=== PATIENT | female | born 1995 | race Caucasian/White ===

== ENCOUNTER 2017-02-17 22:26 | Outpatient (CLI) | payer MEDICAID, OTHER ==
[~2017-02-17] VITALS: Ht 152.4 cm; Wt 81.0 kg
[2017-02-17 22:34] VITALS: Ht 152.4 cm; Wt 81.0 kg
[2017-02-17] MEDS ORDERED: LACTATED RINGER'S 1,000 ML IV ONE (23:30)
[2017-02-18] MEDS ORDERED: LACTATED RINGER'S 1,000 ML IV SCH (00:30)
[2017-02-18 00:35] LABS: ADD UMIC NO; UR ASCORBIC ACID 20 mg/dL (NEGATIVE); UR BILIRUBIN (Dip) NEGATIVE (NEGATIVE); UR BLOOD (Dip) NEGATIVE (NEGATIVE); UR CLARITY CLEAR (CLEAR); UR COLOR YELLOW (YELLOW); UR GLUCOSE (Dip) NEGATIVE (NEGATIVE); UR KETONES (Dip) TRACE mg/dL (NEGATIVE); UR LEUKOCYTE ESTERASE (Dip) NEGATIVE Leu/ul (NEGATIVE); UR NITRITE (Dip) NEGATIVE (NEGATIVE); UR SPECIFIC GRAVITY (Dip) 1.017 (1.003-1.030); UR TOTAL PROTEIN (Dip) NEGATIVE (NEGATIVE); UR UROBILINOGEN (Dip) NEGATIVE (NEGATIVE)
--- NOTE | 2017-02-18 00:40 | RADRPT ---
PROCEDURE: ULTRASOUND OBSTETRICAL CLINICAL INDICATION: 22-year-old female with abdominal pain. TECHNIQUE: Multiple sonographic images of the pelvis were obtained. The images were reviewed on a PACS workstation. COMPARISON: No prior studies are available for comparison. FINDINGS: The cervix is not well visualized. There is a single viable intrauterine gestation. Cardiac activit y is present with 168 beats per minute. There is a vertex presentation. Measurements were made in or karlos to determine age. The results are as follows: BPD = 9.29 cm, HC = 33.12 cm, AC = 32.29 cm, FL = 6.85 cm. This yields and estimated gestational ag e of approximately 36 weeks 5 days. The estimated date of delivery is March 12, 2017. The EFW = 2897 +/- 435 g (6 lb 6 oz). The GP is 63%. The placenta is anterior. There is no evidence for an abruption or placenta previa. IMPRESSION: 1. Single viable intrauterine gestation of approximately 36 weeks 5 days with vertex presentation. 2. The estimated weight is 2897 +/- 435 g (6 lb 6 oz). The GP is 63%. .Nadeem Mahmood MD, Date Time Electronically viewed and signed by .Nadeem Mahmood MD, MD on 02/18/2017 00:40 .M/
--- NOTE | 2017-02-18 00:41 | RADRPT ---
PROCEDURE: ULTRASOUND BIOPHYSICAL PROFILE CLINICAL INDICATION: 22-year-old female for viability. TECHNIQUE: Multiple sonographic images were obtained in order to perform a biophysical profile The images were reviewed on a PACS workstation. COMPARISON: Ultrasound OB obtained concurrently. FINDINGS: There is a single viable intrauterine gestation. There is a vertex presentation. Cardiac activity i s present at 166 beats per minute. The placenta is anterior. The results of the biophysical profile are as follows: breathing movement = 2/2 Gross body movement = 2/2 tone = 2/2 Qualitative amniotic fluid volume = 2/2 Amniotic fluid index equals 11.6 cm. This yields a biophysical profile score of 8/8. IMPRESSION: Biophysical profile score is 8/8. .Nadeem Mahmood MD, Date Time Electronically viewed and signed by .Nadeem Mahmood MD, on 02/18/2017 00:41 .M/
--- NOTE | 2017-02-18 01:48 | PN ---
Triage Information Date/Time Reason for visit: Abd/pelvic pain Weeks of Gestation 36 weeks /Para Diabetes: none Hypertention: none Objective Intake and Output 02/17/17 02/17/17 02/18/17 15:00 23:00 07:00 Intake Total 1000 ml Balance 1000 ml Heart Rate: 150's Heart Rate Comments Category I Contractions: 6-10 Minutes Apart Exam Cervix closed Results/Medications Results 24 hrs Laboratory Tests Test 02/17/17 22:32 Urine Color YELLOW Urine Clarity CLEAR Urine pH 6.0 Urine Specific [place] 1.017 Urine Ketones TRACE A Urine Nitrite NEGATIVE Urine Bilirubin NEGATIVE Urine Urobilinogen NEGATIVE Urine Leukocyte Esterase NEGATIVE Urine Hemoglobin NEGATIVE Urine Glucose NEGATIVE Urine Total Protein NEGATIVE Medications Current Medications Lactated Ringer's (Lr) 1,000 ml @ 125 mls/hr Q8H IV ; Start 02/18/17 at 00:30 Imaging Results [facility] 12/02 Disposition: Discharge Assessment/Plan Not in labor D/C home. KALIE WALKER MD Feb 18, 2017 01:48
[2017-02-19] MEDS ORDERED: MUPI22OI2 TOP (10:35)
[2017-02-19] MEDS ORDERED: CEPH-443 PO (10:35)
== END 2017-02-18 01:51 | disposition home or self-care (01) ==
LOC: OBT 22:26 → L-D 22:27 → OBT 02-18 01:51
PROVIDERS: ATTEND Obstetrics & Gynecology
DX: O26.893 Other specified pregnancy related conditions, third trimester (principal); Z3A.36 36 weeks gestation of pregnancy; R10.9 Unspecified abdominal pain
CPT/HCPCS: 36415; 76815; 76818; 81003; 96360; 96361; J7120; Z7500; G0463

== ENCOUNTER 2017-02-19 08:35 | Emergency (ER) | payer OTHER ==
[~2017-02-19] VITALS: Ht 154.9 cm; Wt 81.0 kg
[2017-02-19 08:39] VITALS: Ht 154.9 cm; Wt 81.0 kg
--- NOTE | 2017-02-19 10:32 | ERD ---
ER Documentation Chief Complaint Chief Complaint right 4th digit swelling sent by pmd HPI 22-year-old female at 36 weeks , presents to the emergency department complaining of 2 days with progressive pain, edema, erythema of the right fourth digit. The pain is throbbing, 5/10. Risk factors: Nail biting. Denies fevers, chills. In regards to her , no complaints at this time, denies abdominal pain, no vaginal bleeding, refers adequate movements. ROS SYSTEMIC symptoms: No fever, no chills, no night sweats EYE symptoms: No eyesight problems. OTOLARYNGEAL symptoms: No hearing loss. CARDIOVASCULAR symptoms: No chest pain or discomfort, no palpitations. PULMONARY symptoms: No dyspnea, no cough, no wheezing. GASTROINTESTINAL symptoms: No abdominal pain, no nausea, no vomiting SKIN no rashes MUSCULOSKELETAL symptoms: No arthralgias, no muscle aches. NEUROLOGY symptoms: No headache, no confusion, no syncope, no numbness or tingling. All systems reviewed and are negative except as per history of present illness. Medications Home Meds Active Scripts Mupirocin* (Bactroban*) 2% -22 Gram Oint...g., 1 APPLIC TOP BID for 7 Days, EA Prov:LANI SONG MD 02/19/17 Cephalexin* (Keflex*) 500 Mg Capsule, 500 MG PO BID for 5 Days, CAP Prov:LANI SONG MD 02/19/17 Allergies Allergies: Coded Allergies: No Known Allergy (Unverified , 02/17/17) PMhx/Soc Medical and Surgical Hx: pt denies Medical Hx, pt denies Surgical Hx Hx Alcohol Use: No Hx Substance Use: No Hx Tobacco Use: No Physical Exam Vitals Vital Signs Date Time Temp Pulse Resp B/P Pulse Ox O2 Delivery O2 Flow Rate FiO2 02/19/17 08:39 98.8 92 18 131/75 98 Physical Exam Patient is in no acute distress, vital signs stable. Alert and fully oriented. EYES: PERRLA, EOMI, Sclera and conjunctiva appear normal. THROAT: Normal oropharynx. NECK: Supple, No lymphadenopathy. Full ROM without pain or tenderness. HEART: RRR, no rubs, murmurs, clicks or gallops. LUNGS: Clear to auscultation. ABDOMEN: Soft, uterus gravid, non-tender without masses or hepatosplenomegaly. SKIN: Rt 4th digit: periungual edema, erythema and tenderness. Cap refill <2sec Procedures/MDM Paronychia I&D: The procedure was explained and consent obtained. The area was cleaned with iodine. A sterile drape and prep were done. The fluctuant area around the nail , was excised with an 18-gauge needle obtaining moderate amount of pus, the area was expressed and irrigated with normal saline. Antibiotic ointment was applied. The patient tolerated the procedure well. MDM: 22-year-old female, at 36 weeks, presents with pain, erythema, and edema of the right fourth finger. Differential diagnosis includes abscess, cellulitis, herpetic winifred, eczema, hematoma. Physical examination and clinical finding consistent with paronychia, incision and drainage was done without complications. The patient will be discharged home with a prescription for cephalexin p.o. for 5 days and mupirocin topical for 5 days. Follow-up in 2 -4 days with her primary doctor, the patient was instructed to return to the emergency department for worsening of symptoms. Departure Diagnosis: Primary Impression: Paronychia of finger of right hand Additional Impression: Condition: Stable Patient Instructions: Paronychia Additional Instructions: Muchas karla por [facility] para khalil servicio. Esperamos que en khalil visita a la gama de emergencia khalil problema medico haya sido solucionado y que se sienta mucho mejor. Para estar seguros que khalil mejoria sigue en proceso, le pedimos el favor de hacer denia shaquille de seguimiento medico con khalil doctor primario en los proximos 2-4 house. Lleve con usted estos documentos y las medicinas recetadas. Si yosi sintomas empeoran y no puede jim a khalil doctor, por favor regrese a gama de emergencia. LANI SONG MD Feb 19, 2017 10:30
[2017-02-19] MEDS ORDERED: MUPI22OI2 TOP (10:35)
[2017-02-19] MEDS ORDERED: CEPH-443 PO (10:35)
== END 2017-02-19 10:40 | disposition home or self-care (01) ==
LOC: FTE 08:35
DX: L03.011 Cellulitis of right finger (principal)
CPT/HCPCS: 10060; Z7502

== ENCOUNTER 2017-02-28 21:10 | Outpatient (CLI) | payer OTHER ==
[~2017-02-28] VITALS: Ht 152.4 cm; Wt 83.0 kg
[~2017-02-28 21:10] MED LIST: CEPH-443 PO; MUPI22OI2 TOP
[2017-02-28 21:33] VITALS: BP 121/71; PULSE 116; RESP 18
[2017-02-28] MEDS ORDERED: PREN1COM15 PO (21:37)
[2017-02-28] MEDS ORDERED: CALC667C PO (21:38)
[2017-02-28] MEDS ORDERED: ACETAMINOPHEN 500 MG TAB PO ONE (21:57)
--- NOTE | 2017-02-28 22:26 | RADRPT ---
PROCEDURE: Obstetrical ultrasound for biophysical profile CLINICAL INDICATION: Biophysical profile. . TECHNIQUE: Obstetrical ultrasound of the uterus for biophysical profile. Transabdominal views are obtained. COMPARISON: 02/17/2017 FINDINGS: Single intrauterine gestation. Presentation: Cephalic. Placenta: Anterior. No evidence of placental abruption. No evidence of placenta previa. breathing movement = 2/2 tone = 2/2 motion = 2/2 TISHA = 2/2 TISHA = 18.1 cm heart rate: 150 beats per minute IMPRESSION: Single intrauterine gestation. Biophysical profile 12/02 RPTAT: AADD .Nikko Cook MD, MD Date Time Electronically viewed and signed by .Nikko Cook MD, on 02/28/2017 22:26 .B/
--- NOTE | 2017-03-01 00:15 | PN ---
Triage Information Date/Time Mar 01, 2017 Reason for visit: Abd/pelvic pain Weeks of Gestation 37w 4d /Para 1/0 Diabetes: none Hypertention: none Additional information C/O back pain, mild that radiates to the right side. No dysuria or frequency. PMHx: none. PSHx: Breast augmentation. NKDA. Objective Vital Signs Date Time Temp Pulse Resp B/P Pulse Ox O2 Delivery O2 Flow Rate FiO2 02/28/17 21:33 98.7 116 18 121/71 Room Air Heart Rate: 150's Heart Rate Comments Accels to 180 bpm. No decels. Contractions: 6-10 Minutes Apart Exam cl/th/high Results/Medications Results 24 hrs Laboratory Tests Test 02/28/17 23:00 Urine Color STRAW Urine Clarity CLEAR Urine pH 7.0 Urine Specific [place] 1.004 Urine Ketones NEGATIVE Urine Nitrite NEGATIVE Urine Bilirubin NEGATIVE Urine Urobilinogen NEGATIVE Urine Leukocyte Esterase NEGATIVE Urine Hemoglobin NEGATIVE Urine Glucose NEGATIVE Urine Total Protein NEGATIVE Imaging Results BPP 8/8. TISHA 18.1 cm. VTX. Disposition: Discharge Assessment/Plan A: IUP at 37w 4d. Back pain. False labor. P: Pain resolved with p.o. hydration and one dose of Tylenol. Pt ready for d/c home. Labor precautions and kick counts reviewed. KARLA MOSQUEDA MD Mar 01, 2017 00:15
== END 2017-03-01 00:30 | disposition home or self-care (01) ==
LOC: OBT 21:10 → L-D 21:11 → OBT 03-01 00:30
PROVIDERS: ATTEND Obstetrics & Gynecology
DX: O26.893 Other specified pregnancy related conditions, third trimester (principal); Z3A.37 37 weeks gestation of pregnancy; R10.2 Pelvic and perineal pain; O47.9 False labor, unspecified
CPT/HCPCS: 76818; 81003; 87086; Z7500; Z7610; G0463

== ENCOUNTER 2017-03-07 11:53 | Outpatient (CLI) | payer OTHER ==
[~2017-03-07] VITALS: Ht 152.4 cm; Wt 81.6 kg
[~2017-03-07 11:53] MED LIST changes: +CALC667C PO; +PREN1COM15 PO
[2017-03-07 12:18] VITALS: Ht 152.4 cm; Wt 81.6 kg
[2017-03-07 12:19] VITALS: BP 113/74; PULSE 113; RESP 18
--- NOTE | 2017-03-07 13:32 | RADRPT ---
PROCEDURE: Obstetrical ultrasound for biophysical profile CLINICAL INDICATION: Biophysical profile. . TECHNIQUE: Obstetrical ultrasound of the uterus for biophysical profile. Transabdominal views are obtained. COMPARISON: 02/28/2017 FINDINGS: Single intrauterine gestation. Presentation: Cephalic. Placenta: Anterior. No evidence of placental abruption. No evidence of placenta previa. breathing movement = 2/2 tone = 2/2 motion = 2/2 TISHA = 2/2 TISHA = 14.9 cm heart rate: 176 beats per minute IMPRESSION: Single intrauterine gestation. Biophysical profile 12/02 RPTAT: AADD .Nikko Cook MD, MD Date Time Electronically viewed and signed by .Nikko Cook MD, on 03/07/2017 13:32 .B/
--- NOTE | 2017-03-07 13:34 | RADRPT ---
PROCEDURE: Obstetrical ultrasound. CLINICAL INDICATION: , evaluation. Pelvic pain. TECHNIQUE: Transabdominal sonographic images of the uterus obtained after first trimester , greater than 14 weeks gestation. Single intrauterine gestation present. COMPARISON: 02/28/2017, 02/17/2017 FINDINGS: Single intrauterine gestation. There is a cephalic presentation. Measurements were made in order to determine age. The results are as follows: BPD = 38 weeks 6 day(s) HC = 39 weeks 0 day(s) AC = 40 weeks 6 day(s) FL = 36 weeks 3 day(s) TISHA = not measured Heart rate = 146 beats per minute The placenta is anterior. There is no evidence for an abruption or placenta previa. Ovaries are not visualized. IMPRESSION: Single intrauterine gestation of approximately 38 weeks 6 days by ultrasound criteria. [place] estimated weight = 3813 g; 87 percentile for gestational age of 38 weeks 3 days. RPTAT: AADD .Nikko Cook MD, MD Date Time Electronically viewed and signed by .Nikko Cook MD, on 03/07/2017 13:34 .B/
--- NOTE | 2017-03-07 14:24 | PN ---
Triage Information Date/Time 03/07/2017 Reason for visit: Uterine contractions Weeks of Gestation 38+ /Para ge=ravida 3 P 0 Diabetes: none Hypertention: none Objective Vital Signs Date Time Temp Pulse Resp B/P Pulse Ox O2 Delivery O2 Flow Rate FiO2 03/07/17 12:19 97.9 113 18 113/74 98 Room Air Heart Rate: 140's Heart Rate Comments reactive Contractions: None Results/Medications Results 24 hrs Laboratory Tests Test 03/07/17 12:13 Urine Color YELLOW Urine Clarity CLOUDY A Urine pH 7.0 Urine Specific [place] 1.011 Urine Ketones NEGATIVE Urine Nitrite NEGATIVE Urine Bilirubin NEGATIVE Urine Urobilinogen NEGATIVE Urine Leukocyte Esterase 3+ H Urine Microscopic RBC 3 Urine Microscopic WBC 14 H Urine Squamous Epithelial Cells FEW Urine Amorphous Crystals FEW A Urine Bacteria MANY A Urine Hemoglobin NEGATIVE Urine Glucose NEGATIVE Urine Total Protein NEGATIVE Urine Opiates Screen Negative Urine Barbiturates Negative Urine Amphetamines Screen Negative Urine Benzodiazepines Screen Negative Urine Cocaine Screen Negative Urine Cannabinoids Negative Medications none Imaging Results [facility] 12/02 Disposition: Discharge Assessment/Plan home with labor precautions SHAYNE CERVANTES MD Mar 07, 2017 14:24
--- NOTE | 2017-03-07 14:24 | PN ---
Triage Information Date/Time 03/07/2017 Reason for visit: Uterine contractions Weeks of Gestation 38+ /Para ge=ravida 3 P 0 Diabetes: none Hypertention: none Objective Vital Signs Date Time Temp Pulse Resp B/P Pulse Ox O2 Delivery O2 Flow Rate FiO2 03/07/17 12:19 97.9 113 18 113/74 98 Room Air Heart Rate: 140's Heart Rate Comments reactive Contractions: None Results/Medications Results 24 hrs Laboratory Tests Test 03/07/17 12:13 Urine Color YELLOW Urine Clarity CLOUDY A Urine pH 7.0 Urine Specific [place] 1.011 Urine Ketones NEGATIVE Urine Nitrite NEGATIVE Urine Bilirubin NEGATIVE Urine Urobilinogen NEGATIVE Urine Leukocyte Esterase 3+ H Urine Microscopic RBC 3 Urine Microscopic WBC 14 H Urine Squamous Epithelial Cells FEW Urine Amorphous Crystals FEW A Urine Bacteria MANY A Urine Hemoglobin NEGATIVE Urine Glucose NEGATIVE Urine Total Protein NEGATIVE Urine Opiates Screen Negative Urine Barbiturates Negative Urine Amphetamines Screen Negative Urine Benzodiazepines Screen Negative Urine Cocaine Screen Negative Urine Cannabinoids Negative Medications none Imaging Results [facility] [place] 12/02 Disposition: Discharge Assessment/Plan home with labor precautions SHAYNE CERVANTES MD Mar 07, 2017 14:24
--- NOTE | 2017-03-07 14:24 | PN ---
Triage Information Date/Time 03/07/2017 Reason for visit: Uterine contractions Weeks of Gestation 38+ /Para ge=ravida 3 P 0 Diabetes: none Hypertention: none Objective Vital Signs Date Time Temp Pulse Resp B/P Pulse Ox O2 Delivery O2 Flow Rate FiO2 03/07/17 12:19 97.9 113 18 113/74 98 Room Air Heart Rate: 140's Heart Rate Comments reactive Contractions: None Results/Medications Results 24 hrs Laboratory Tests Test 03/07/17 12:13 Urine Color YELLOW Urine Clarity CLOUDY A Urine pH 7.0 Urine Specific [place] 1.011 Urine Ketones NEGATIVE Urine Nitrite NEGATIVE Urine Bilirubin NEGATIVE Urine Urobilinogen NEGATIVE Urine Leukocyte Esterase 3+ H Urine Microscopic RBC 3 Urine Microscopic WBC 14 H Urine Squamous Epithelial Cells FEW Urine Amorphous Crystals FEW A Urine Bacteria MANY A Urine Hemoglobin NEGATIVE Urine Glucose NEGATIVE Urine Total Protein NEGATIVE Urine Opiates Screen Negative Urine Barbiturates Negative Urine Amphetamines Screen Negative Urine Benzodiazepines Screen Negative Urine Cocaine Screen Negative Urine Cannabinoids Negative Medications none Imaging Results [facility] 12/02 Disposition: Discharge Assessment/Plan home with labor precautions SHAYNE CERVANTES MD Mar 07, 2017 14:24
== END 2017-03-07 14:42 | disposition home or self-care (01) ==
LOC: OBT 11:53 → L-D 11:54 → OBT 14:42
PROVIDERS: ATTEND Obstetrics & Gynecology
DX: O62.9 Abnormality of forces of labor, unspecified (principal); Z3A.38 38 weeks gestation of pregnancy
CPT/HCPCS: 76815; 76818; 80307; 81001; Z7500; G0463

== ENCOUNTER 2017-03-12 08:47 | Inpatient (IN) | payer OTHER ==
[~2017-03-12] VITALS: Ht 152.4 cm; Wt 82.7 kg
[~2017-03-12 08:47] MED LIST changes: -CEPH-443 PO; -MUPI22OI2 TOP
[2017-03-12 09:24] VITALS: BP 124/71; PULSE 90; RESP 18; Ht 152.4 cm; Wt 82.7 kg
[2017-03-12] MEDS ORDERED: LIDOCAINE 1% (MPF) 30 ML INJ INJ PRN (09:30)
[2017-03-12] MEDS ORDERED: METHYLERGONOVINE 0.2 MG INJ IM PRN (09:30)
[2017-03-12] MEDS ORDERED: MISOPROSTOL 200 MCG TAB PR PRN (09:30)
[2017-03-12] MEDS ORDERED: OXYTOCIN 30 UNITS/LR 500 ML IV PRN (09:30)
[2017-03-12] MEDS ORDERED: CARBOPROST 250 MCG INJ IM PRN (09:30)
[2017-03-12] MEDS ORDERED: IBUPROFEN 600 MG TAB PO PRN (09:30)
[2017-03-12] MEDS: LACTATED RINGER'S 1,000 ML IV SCH ×2 (09:51→17:04)
[2017-03-12 10:35] LABS: BASOPHILS % 0.1 % (0.0-2.0); EOSINOPHILS % 0.4 % (0.0-7.0); HEMATOCRIT 40.4 % (37.0-47.0); HEMOGLOBIN 13.5 g/dl (12.0-16.0); LYMPHOCYTES # 1.3 10^3/ul (0.8-2.9); LYMPHOCYTES % 15.6 % (15.0-51.0); MEAN CORPUSCULAR HEMOGLOBIN 30.6 pg (29.0-33.0); MEAN CORPUSCULAR HGB CONC 33.4 g/dl (32.0-37.0); MEAN CORPUSCULAR VOLUME 91.6 fl (82.0-101.0); MEAN PLATELET VOLUME 10.6 fl (7.4-10.4); MONOCYTE # 0.4 10^3/ul (0.3-0.9); MONOCYTES % 4.7 % (0.0-11.0); NEUTROPHIL # 6.7 10^3/ul (1.6-7.5); NEUTROPHILS % 78.5 % (39.0-77.0); PLATELET COUNT 175 10^3/UL (140-415); RED BLOOD COUNT 4.41 10^6/ul (4.20-5.40); RED CELL DISTRIBUTION WIDTH 13.3 % (11.5-14.5); WHITE BLOOD COUNT 8.5 10^3/ul (4.8-10.8)
[2017-03-12] MEDS: MISOPROSTOL 25 MCG CAPSULE PO PRN ×4 (10:40→22:39)
[2017-03-12 10:51] LABS: INR 0.92; PARTIAL THROMBOPLASTIN TIME 27.2 Sec (25.0-35.0); PROTIME 12.4 Sec (12.2-14.2)
--- NOTE | 2017-03-12 17:46 | HP ---
Date/Time of Note Date/Time of Note DATE: 03/12/17 TIME: 17:43 OB - History Hx of Present Free Text/Dictation Admitted for induction of labor at term Last Menstrual Period: Jun 11, 2017 Estimated Due Date: Mar 18, 2017 : 1 Para: 0 Care: Good Care Ultrasounds: Normal mid trimester US Obstetrical Complications: None Medical Complications: None Past Family/Social History * Past Medical, Surgical, Family and Obstetric Histories reviewed from chart. Blood Type: O+ Rubella: immune RPR/VDRL: Negative GBS Status: Negative HBsAG: Negative OB Admission Exam Vital Signs Vital Signs Vital Signs Date Time Temp Pulse Resp B/P Pulse Ox O2 Delivery O2 Flow Rate FiO2 03/12/17 09:24 98.8 90 18 124/71 Room Air Physical Exam HEENT: WNL Heart: Rhythm Normal Lungs: Clear, Equal Abdomen: WNL Extremities: Normal Reflexes: Normal Cervical Dilatation: None Effacement: 0% Station: -3 Membranes: Intact Heart Rate: 140's Accelerations: Accelerations Present Decelerations: No Decelerations Varibility: Marked Contractions on Admission: None Last 72 hours Lab Results CBC & BMP 03/12/17 09:35 OB Assessment/Plan Reason for admission: induction of labor Other Assessment: Term gestation Desires elective induction Other plan: Induction of labor Via Cytotec SHAYNE CERVANTES MD Mar 12, 2017 17:46
[2017-03-13] MEDS: LACTATED RINGER'S 1,000 ML IV SCH ×3 (00:05→15:59)
[2017-03-13] MEDS: BUTORPHANOL 2 MG INJ IV PRN (04:27)
[2017-03-13] MEDS: MISOPROSTOL 25 MCG CAPSULE PO PRN ×2 (12:48→17:11)
[2017-03-13] MEDS ORDERED: DINOPROSTONE 10 MG VAG SUPP VAG ONE (21:00)
[2017-03-14] MEDS: LACTATED RINGER'S 1,000 ML IV SCH ×5 (00:04→21:15)
[2017-03-14] MEDS: BUTORPHANOL 2 MG INJ IV PRN (02:35)
[2017-03-14] MEDS ORDERED: FENTAnyl 2MCG/ML-ROPIV 0.2% 100 ML ONE (07:40)
[2017-03-14] MEDS ORDERED: NALOXONE (0.4 MG/ML) INJ IV PRN (08:00)
[2017-03-14] MEDS: FENTAnyl 2MCG/ML-ROPIV 0.2% 100 ML BAG EPI SCH ×2 (14:48→20:20)
--- NOTE | 2017-03-14 16:39 | PN ---
Date/Time of Note Date/Time of Note late entry DATE: 03/13/17 TIME: 16:11 OB Subjective Subjective Subjective No major complaint of uterine contractions OB Objective Objective Objective Vital signs stable General physical exam is unchanged Cervix is long and 1 cm OB Assessment/Plan Reason for admission: induction of labor Other Assessment: Term gestation Other plan: Cervidil was placed SHAYNE CERVANTES MD Mar 14, 2017 16:21
--- NOTE | 2017-03-14 16:46 | PN ---
Date/Time of Note Date/Time of Note DATE: 03/14/17 TIME: 16:45 OB Subjective Subjective Subjective NO C.O labor pains has epidural OB Objective Objective Objective vss P/E unchanged FHTsd reactive OB Assessment/Plan Reason for admission: induction of labor Other Assessment: term gestation Other plan: Start Pitocin SHAYNE CERVANTES MD Mar 14, 2017 16:46
[2017-03-14] MEDS ORDERED: OXYTOCIN 30 UNITS/LR 500 ML IV SCH ×2 (17:00→18:00)
[2017-03-14] MEDS ORDERED: OXYTOCIN 30 UNITS/LR 500 ML IVPB ONE (18:00)
[2017-03-15] MEDS ORDERED: AMPICILLIN 2 GM/NS (PMX) 100 ML ONE (00:17)
[2017-03-15] MEDS ORDERED: AMPICILLIN 2 GM/NS (PMX) 100 ML IV ONE (00:30)
[2017-03-15] MEDS ORDERED: ACETAMINOPHEN 325 MG TAB PO ONE (00:30)
[2017-03-15] MEDS: FENTAnyl 2MCG/ML-ROPIV 0.2% 100 ML BAG EPI SCH (01:16)
[2017-03-15] MEDS ORDERED: CEFAZOLIN 2 GM/50 ML (PMX) 50 ML IVPB ONE (02:46)
[2017-03-15] MEDS ORDERED: CITRIC ACID/SODIUM CITRATE 15 ML CUP ONE (02:56)
[2017-03-15] MEDS ORDERED: ONDANSETRON 4 MG INJ ONE ×2 (02:56→03:57)
[2017-03-15] MEDS ORDERED: FAMOTIDINE 20 MG INJ ONE (02:56)
[2017-03-15] MEDS ORDERED: METOCLOPRAMIDE 10 MG INJ ONE (02:57)
[2017-03-15] MEDS ORDERED: METHYLERGONOVINE 0.2 MG INJ IM PRN ×2 (03:00→05:00)
[2017-03-15] MEDS ORDERED: MISOPROSTOL 200 MCG TAB PR PRN ×2 (03:00→05:00)
[2017-03-15] MEDS ORDERED: CARBOPROST 250 MCG INJ IM PRN ×2 (03:00→05:00)
[2017-03-15] MEDS ORDERED: FAMOTIDINE 20 MG INJ IV ONE (03:00)
[2017-03-15] MEDS ORDERED: CITRIC ACID/SODIUM CITRATE 15 ML CUP PO ONE (03:00)
[2017-03-15] MEDS ORDERED: METOCLOPRAMIDE 10 MG INJ IV ONE (03:00)
[2017-03-15] MEDS ORDERED: OXYTOCIN 30 UNITS/LR 500 ML IV PRN ×2 (03:00→05:00)
[2017-03-15] MEDS ORDERED: CEFAZOLIN 2 GM/50 ML (PMX) 50 ML IV SCH (03:00)
[2017-03-15] MEDS ORDERED: FENTAnyl 50 MCG/ML VIAL ONE (03:15)
[2017-03-15] MEDS ORDERED: morphine SULFATE/PF (10 MG/10 ML) INJ ONE (03:15)
[2017-03-15] MEDS ORDERED: PHENYLephrine (100 MCG/ML) 5ML SYG ONE ×3 (03:36→04:33)
[2017-03-15] MEDS ORDERED: MIDAZOLAM 1 MG/ML 2 ML INJ ONE (04:01)
[2017-03-15] MEDS ORDERED: OXYTOCIN 30 UNITS/LR 500 ML IV ONE (04:16)
[2017-03-15] MEDS ORDERED: AMPICILLIN 1 GM/NS (PMX) 50 ML IV SCH (04:30)
--- NOTE | 2017-03-15 04:47 | QN ---
Documentation Comment Laborist Examined pt and she was 6 cm however the head was high and with contractions it did not come down much. The pt asked for a as her labor was so protracted and she was in a lot of pain despite additional dosing of her epidural by the anesthesiologist. Risks and benefits were reviewed with the pt and the consent was signed. KARLA MOSQUEDA MD Mar 15, 2017 04:47
[2017-03-15] MEDS ORDERED: LANOLIN 7 GM TUBE TOP PRN (05:00)
[2017-03-15] MEDS ORDERED: OXYCODONE/ACETAMINOPHEN (5/325) TAB PO PRN ×2 (05:00)
--- NOTE | 2017-03-15 05:07 | OPR ---
Operative Report Planned Procedure Procedure date Mar 15, 2017 Procedure(s) Primary . Performed by see signature line Business Line Controller Dr Myers Anesthesiologist: BIRGIT GUTIERREZ MD Pre-procedure diagnosis Failure to progress. Anesthesia Type: spinal Post-Procedure Post-procedure diagnosis Failure to progress, macrosomia. Findings Viable baby boy weighing 3985 grams, or 8# 13 oz, 20.5" long, and with Apgars of 8/9. Estimated Blood Loss: 400 - 500 mls Specimen(s) none Grafts/Implant(s) none Complication(s) none Pt Condition post procedure: stable Disposition: PACU Procedure Description Pt was brought to the OR and her epidural was pulled and a spinal was placed. She was then prepped and draped in the usual sterile fashion. A knife was used to incise the skin down to the level of the fascia. Scissors were then used to extend the fascial incision bilaterally. The superior edge of the fascia was grasped and the rectus muscles were from the fascia using blunt dissection and bovie cautery. This was repeated at the lower edge of the incision as well. The rectus muscles were at midline and the peritoneum was bluntly entered using the surgeon's fingers. The incision was stretched open using the surgeon's hands. A bladder blade and Zuñiga retractor were placed. A knife was used to incise the lower uterine segment and the uterus was entered using a Bianca clamp. The incision was then stretched open using the surgeon's hands. The head was elevated and with gentle fundal pressure the baby was easily delivered as the head was not well engaged. 30 seconds was allowed to pass and then the cord was doubly clamped and cut and the baby was brought to the warmer and the NICU respiratory team was in attendance. The placenta was manually extracted, the uterus was externalized and wrapped in a moist lap and a dry lap was used to clean the inside of the uterus. The uterus remained boggy after initiation of pitocin so a dose of methergine was given. The incision was closed in 2 layers with #1 chromic suture with excellent hemostasis. The pelvis was irrigated and the uterus was replaced back into the abdomen. The incision was examined again and noted to be dry. The peritoneum was closed with 2-0 chromic and the rectus muscles were brought back together at midline using 2 interrupted figure of 8 sutures. The underbelly of the fascia was noted to be dry and the fascia was closed using 0 Vicryl from each lateral edge to midline with overlap at the midline. The incision was then irrigated well and the subcutaneous layer was closed using 0 plain suture and the skin was closed using 3-0 Monocryl in a subcuticular stitch. Steristrips with Mastosol were placed. A pressure dressing was applied overall. The pt tolerated the procedure well and was brought to the recovery room in excellent condition. KARLA MOSQUEDA MD Mar 15, 2017 05:07
[2017-03-15] MEDS ORDERED: HYDROmorphONE 0.5 MG/0.5 ML SYG IV PRN ×2 (05:30)
[2017-03-15] MEDS ORDERED: FENTAnyl 50 MCG/ML VIAL IV PRN (05:30)
[2017-03-15] MEDS ORDERED: ZOLPIDEM 5 MG TAB PO PRN (05:30)
[2017-03-15] MEDS ORDERED: KETOROLAC 30 MG INJ IV PRN (05:30)
[2017-03-15] MEDS ORDERED: DIPHENHYDRAMINE 50 MG INJ IV PRN ×2 (05:30)
[2017-03-15] MEDS ORDERED: NALOXONE (0.4 MG/ML) INJ IV PRN (05:30)
[2017-03-15] MEDS ORDERED: ONDANSETRON 4 MG INJ IV PRN ×2 (05:30)
[2017-03-15] MEDS ORDERED: PROCHLORPERAZINE 10 MG INJ IV PRN (05:30)
[2017-03-15] MEDS ORDERED: HYDROmorphONE (0.2 MG/ML) 10ML SYG IV PRN (05:30)
[2017-03-15] MEDS ORDERED: MEPERIDINE 25 MG INJ IV PRN (05:30)
[2017-03-15] MEDS ORDERED: OXYTOCIN 30 UNITS/LR 500 ML IV SCH (07:30)
[2017-03-15] MEDS: LACTATED RINGER'S 1,000 ML IV SCH ×3 (07:47→22:20)
[2017-03-15 08:05] VITALS: BP 122/64; PULSE 106; RESP 20
[2017-03-15 08:35] VITALS: BP 125/64; PULSE 108; RESP 20
[2017-03-15 11:55] VITALS: BP 115/58; PULSE 109; RESP 16
[2017-03-15 15:48] VITALS: BP 117/83; PULSE 115; RESP 18
[2017-03-15] MEDS: CEFAZOLIN 2 GM/50 ML (PMX) 50 ML IVPB SCH (16:58)
[2017-03-15] MEDS: CLINDAMYCIN 300 MG CAP PO SCH (18:36)
[2017-03-15] MEDS: KETOROLAC 30 MG INJ IV PRN (18:39)
[2017-03-15 20:00] VITALS: BP 92/51; PULSE 93; RESP 18
[2017-03-16 00:15] VITALS: BP 109/58; PULSE 83; RESP 18
[2017-03-16] MEDS: CLINDAMYCIN 300 MG CAP PO SCH ×4 (01:09→17:43)
[2017-03-16] MEDS: CEFAZOLIN 2 GM/50 ML (PMX) 50 ML IVPB SCH (02:39)
[2017-03-16] MEDS: KETOROLAC 30 MG INJ IV PRN (02:39)
[2017-03-16 03:58] VITALS: BP 113/65; PULSE 73; RESP 18
[2017-03-16] MEDS: IBUPROFEN 800 MG TAB PO SCH ×3 (05:36→22:40)
[2017-03-16 08:15] VITALS: BP 104/75; PULSE 74; RESP 18
[2017-03-16 08:31] LABS: BASOPHILS % 0.2 % (0.0-2.0); EOSINOPHILS # 0.1 10^3/ul (0.0-0.5); EOSINOPHILS % 0.7 % (0.0-7.0); HEMATOCRIT 31.3 % (37.0-47.0); HEMOGLOBIN 10.3 g/dl (12.0-16.0); LYMPHOCYTES # 1.3 10^3/ul (0.8-2.9); LYMPHOCYTES % 14.6 % (15.0-51.0); MEAN CORPUSCULAR HEMOGLOBIN 30.7 pg (29.0-33.0); MEAN CORPUSCULAR HGB CONC 32.9 g/dl (32.0-37.0); MEAN CORPUSCULAR VOLUME 93.2 fl (82.0-101.0); MEAN PLATELET VOLUME 10.3 fl (7.4-10.4); MONOCYTE # 0.6 10^3/ul (0.3-0.9); MONOCYTES % 6.5 % (0.0-11.0); NEUTROPHIL # 6.8 10^3/ul (1.6-7.5); NEUTROPHILS % 77.5 % (39.0-77.0); PLATELET COUNT 145 10^3/UL (140-415); RED BLOOD COUNT 3.36 10^6/ul (4.20-5.40); RED CELL DISTRIBUTION WIDTH 13.3 % (11.5-14.5); WHITE BLOOD COUNT 8.7 10^3/ul (4.8-10.8)
[2017-03-16 16:49] VITALS: BP 101/79; PULSE 100; RESP 19
[2017-03-16 20:10] VITALS: BP 110/84; PULSE 85; RESP 18
[2017-03-17] MEDS: CLINDAMYCIN 300 MG CAP PO SCH ×4 (00:03→18:33)
[2017-03-17 04:00] VITALS: BP 106/65; PULSE 93; RESP 18
[2017-03-17] MEDS: IBUPROFEN 800 MG TAB PO SCH ×3 (05:36→22:54)
[2017-03-17 08:10] VITALS: BP 101/64; PULSE 93; RESP 20
--- NOTE | 2017-03-17 08:41 | QN ---
Documentation Comment POD#2 is stable ,afebrile tolerates diet No Vb +flatus +voids VS stable Gen NAD Abd soft NT ND Incision intact Geenitalia No blood at perinium --->discharge plan tomorrow GABBY WARD M.D. Mar 17, 2017 08:41
--- NOTE | 2017-03-17 14:15 | DS ---
Date/Time of Note Date/Time of Note home today or next day DATE: 03/17/17 TIME: 14:00 Obstetrical Discharge Record Final Diagnosis Final Diagnosis: Term delivered Other Final Diagnosis Status post section Complications Augmentation: Yes Induction: Yes Condition on Discharge Physical Assessment Last Vitals: See nurse's note Voiding: Yes Bowel Movement: Yes Breast: Soft, non-tender, Filling Fundus: Firm Abdomen and Incision: soft BS + Incision healing well Episiotomy: NA Calf Tenderness: No Patient Condition: Good SHAYNE CERVANTES MD Mar 17, 2017 14:15
--- NOTE | 2017-03-17 14:18 | DS ---
Date/Time of Note Date/Time of Note DATE: 03/17/17 TIME: 14:15 Discharge Summary Admission/Discharge Info Admit Date/Time Mar 12, 2017 at 08:47 Discharge Date/Time 03/18/2017 Discharge Diagnosis S/P C/S Patient Condition: Good Procedures primary C/S Hx of Present Illness 22 y/o female had primary Hospital Course Uncomplicated Home Meds Reported Medications Calcium Acetate* (Calcium Acetate*) 667 Mg Capsule, 667 MG PO WITH MEALS, #30 CAP 02/28/17 Vit #105/Iron/FA/Dha (Prena1 True Combo Pack) 1 Each Combo..pkg, 1 EACH PO 02/28/17 Follow-up Plan 2 weeks in clinic Primary Care Provider Not On Staff Doctor Time spent on discharge: > 30 minutes SHAYNE CERVANTES MD Mar 17, 2017 14:17
--- NOTE | 2017-03-17 14:19 | PD.PPDC ---
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 Provider Information Physician Information 22-year-old female had primary Diagnosis Final Diagnosis: Status post Condition Patient Condition: Good Diet Diet: Resume Regular Diet Activity/Restrictions Activity: May Shower Restrictions: No Exercising No Lifting Nothing in the Vagina Return to Work or School: May 18, 2017 Follow-up Follow-up with Physician: 2, Week/Weeks (In clinic) Return to clinic for LABORER RAGS Instructions: Fever greater than 101 Chills OB Instructions: Breast Tenderness Depression Comment: Pelvic rest no heart activity for 2 months Surgical Instructions: Incisional Drainage Incisional Redness SHAYNE CERVANTES MD Mar 17, 2017 14:19
[2017-03-17] MEDS ORDERED: IBUP800T25 PO (14:20)
[2017-03-17 17:21] VITALS: BP 120/69; PULSE 76; RESP 19
[2017-03-17 19:50] VITALS: BP 117/63; PULSE 91; RESP 18
[2017-03-18] MEDS: CLINDAMYCIN 300 MG CAP PO SCH ×3 (00:42→11:49)
[2017-03-18 04:00] VITALS: BP 106/59; PULSE 106; RESP 19
[2017-03-18] MEDS: IBUPROFEN 800 MG TAB PO SCH ×2 (05:25→13:37)
[2017-03-18 08:20] VITALS: BP 113/65; PULSE 95; RESP 18
[2017-03-18] MEDS ORDERED: DIPHTH/TET/ACEL PERTUSS (ADULT) 0.5 ML VIAL IM* ONE (09:00)
== END 2017-03-18 17:00 | disposition home or self-care (01) | DRG 766 ==
LOC: L-D 08:47 → PP1 03-15 08:00
PROVIDERS: ADMIT Obstetrics & Gynecology; ATTEND Obstetrics & Gynecology
PROC: 10D00Z1 Extraction of Products of Conception, Low, Open Approach (ICD-10-PCS; principal; 2017-03-14)
PROC: 3E033VJ Introduction of Other Hormone into Peripheral Vein, Percutaneous Approach (ICD-10-PCS; 2017-03-14)
DX: O62.0 Primary inadequate contractions (principal); Z37.0 Single live birth; Z3A.39 39 weeks gestation of pregnancy
CPT/HCPCS: 62319; 85025; 85610; 85730; 86592; 86850; 86900; 86901; 87340; 90715; 99464; J0290; J0595; J0690; J1170; J1200; J1885; J2210; J2250; J2274; J2370; J2405; J2590; J2765; J3010; J7120